=== PATIENT | female | born 1955 | race Caucasian/White ===

== ENCOUNTER 2017-07-30 21:08 | Emergency (ER) | payer BC ==
[~2017-07-30] VITALS: Ht 154.9 cm; Wt 64.2 kg
[2017-07-30 22:06] LABS: HEMATOCRIT 38.1 % (36.0-46.0); HEMOGLOBIN 13.2 G/DL (11.9-15.5); MCH 30.9 PG (29.0-34.0); MCHC 34.6 G/DL (30.0-36.0); MCV 89.2 FL (83-99); PLATELET COUNT 241 K/uL (156-360); RBC DIS.WIDTH-SD 38.7 % (39-53); RED BLOOD COUNT 4.27 M/uL (3.80-5.20); WHITE BLOOD COUNT 6.8 K/uL (4.1-10.2)
[2017-07-30 22:16] LABS: ALBUMIN 3.8 g/dL (3.2-4.8)
[2017-07-30 22:17] LABS: CHLORIDE 106 mEq/L (99-109); POTASSIUM 3.7 mEq/L (3.7-5.4); SODIUM 142 mEq/L (136-147)
[2017-07-30 22:19] LABS: GLUCOSE 161 mg/dL (70-99); TOTAL PROTEIN 6.5 g/dL (6.4-8.3)
[2017-07-30 22:21] LABS: TOTAL BILIRUBIN 0.2 mg/dL (0.0-1.0)
[2017-07-30 22:22] LABS: ALKALINE PHOSPHATASE 97 IU/L (3-129)
[2017-07-30 22:23] LABS: CREATININE 0.8 mg/dL (0.6-1.3); GFR ESTIMATE (CALCULATED) > 59 mL/min/
[2017-07-30 22:24] LABS: AST (GOT) 21 IU/L (2-34); UREA NITROGEN (BUN) 15 mg/dL (9-23)
[2017-07-30 22:26] LABS: ALT (GPT) 24 IU/L (3-49); LIPASE 49 U/L (1.0-51.0)
[2017-07-30 22:31] LABS: APPEARANCE CLEAR ((CLEAR)); BILIRUBIN NEGATIVE; BLOOD NEGATIVE; COLOR YELLOW ((YELLOW)); GLUCOSE (STRIP) NEGATIVE; KETONES NEGATIVE; LEUKOCYTES MODERATE; NITRITE NEGATIVE; PROTEIN (STRIP) NEGATIVE; SPECIFIC GRAVITY 1.023 (1.000-1.030)
[2017-07-30 22:36] LABS: BACTERIA NONE SEEN /HPF; EPITHELIAL CELLS RARE /HPF; MUCUS TRACE /LPF; RED BLOOD CELLS 0-5 /HPF (0-5); UCUL ADDED? NO; WHITE BLOOD CELLS 0-5 /HPF (0-5)
[2017-07-30 23:55] LABS: TROP-I INTERPRETATION NEGATIVE; TROPONIN-I < 0.01 ng/mL (0.0-0.30)
[2017-07-31] MEDS ORDERED: PEPCID20 MG PO (00:58)
[2017-07-31 01:12] VITALS: BP 137/70
== END 2017-07-31 01:15 | disposition home or self-care (01) ==
LOC: EME → EDBD 21:08 → EME 07-31 01:15
PROVIDERS: Emergency Medicine
DX: R10.13 Epigastric pain (principal); R73.9 Hyperglycemia, unspecified; K82.8 Other specified diseases of gallbladder; R94.31 Abnormal electrocardiogram [ECG] [EKG]; E78.5 Hyperlipidemia, unspecified; F32.9 Major depressive disorder, single episode, unspecified; Z98.890 Other specified postprocedural states; Z90.710 Acquired absence of both cervix and uterus; Z88.8 Allergy status to other drugs, medicaments and biological substances
CPT/HCPCS: 76705; 80053; 81003; 83690; 84484; 85027; 93005; 99281; 99285